=== PATIENT | female | born 1960 | race Caucasian/White ===

== ENCOUNTER 2017-01-24 12:20 | Outpatient (CLI) | payer MEDICARE, OTHER ==
[2017-01-24 12:20] VITALS: BP 122/78
[~2017-01-24 12:20] MED LIST: ADVAIR HFA1 AE1 IH; ADVAIR HFA1 AE2 INH; AGGRENOX (D1 CAPSULE FT; ALLERGY; AMITIZA24 MCG PO; AMOXICILLIN 50500 MG PO; APAP W/ CODEINE1 TAB PO; ASPIRIN 81MG TA81 MG PO; ASTELIN NA137 MCG/BO; ASTEPRO205.5 MCG/ NS; BENICAR20 MG PO; BENICAR5 MG OR; BUSPAR DIVIDOSE15 MG PO; CALCIUM WITH VI1 TAB PO; CHLORDIAZEPOXID10 MG PO; DEXILANT60 MG PO; DIPYRIDAMOLE50 MG PO; EFFEXOR XR150 MG PO; FLEXERIL10 M1 PO; FLEXERIL5 MG PO; FLONASE 50 MCG16 GM; FLUCONAZOLE 10100 MG PO; GABAPENTIN 600600 MG PO; HAIR SKIN NAIL1 EACH PO; HYDROCHLOROTHIA25 M1 PO; HYDROCODONE-APA1 TA2 PO; IPRATROPIU0.5 MG/2.5 IN; LEVOCETIRIZINE D5 MG PO; LODRANE PO; LORATADINE 10MG10 M1 PO; MAXZIDE 50 MG-71 TAB OR; METOLAZONE 2.52.5 MG PO; NASAREL0.025 MG/1 NS; NATURAL POTASS595 MG PO; PRAMIPEXOLE DIHY1 MG PO; PRAVASTATIN 20M20 MG PO; PRAVASTATIN 40M40 MG PO; PREDNISONE 5MG.5 MG PO; PULMICORT0.5 MG/2 M IN; RT-ACCUNEB S3 ML/AMP IN; SIMPONI50 MG/0.5 SC; SINGULAIR10 MG PO; SPIRIVA HA1 PUFF/INH IH; SYNTHROID 0.00.05 MG PO; ZITHROMAX500 MG PO; [UNRECOGNIZED DRUG - OTHER] OR; [UNRECOGNIZED DRUG - OTHER] SC
[2017-01-24] MEDS ORDERED: SPIRIVA HA1 PUFF/INH IH (15:19)
== END 2017-01-24 12:40 | disposition home or self-care (01) ==
LOC: COP 12:20
DX: M81.0 Age-related osteoporosis without current pathological fracture (principal)
CPT/HCPCS: J0897

== ENCOUNTER → 2017-02-20 | Outpatient (CLI) | payer MEDICARE, OTHER ==
--- NOTE | 2017-02-20 12:56 | RADIOLOGY REPORT PS360 ---
FOOT-LT-3 VIEWS HISTORY: Left foot pain/brain LEFT FOOT INJURY,SPRAIN ORDERING PHYSICIAN: Aydee MAYER PATIENT AGE: 56 years COMPARISON: 12/15/2016 FINDINGS: A nondisplaced transverse fracture is present at the proximal to mid shaft of the proximal phalanx of the third toe. There remains intramedullary lucency of the mid and distal aspect of the first metatarsal with some cortical irregularity involving the mid shaft of the first metacarpal and subcortical lucency medially of the distal first metatarsal. These findings are not significantly changed. Recent bone scan did not demonstrate increased activity in this region. IMPRESSION: 1. Nondisplaced fracture proximal phalanx third toe. 2. No change in the chronic changes of the first metatarsal
== END ==
LOC: RAD 12:15
DX: S99.922A Unspecified injury of left foot, initial encounter (principal); S93.612A Sprain of tarsal ligament of left foot, initial encounter

== ENCOUNTER → 2017-04-05 | Outpatient (CLI) | payer MEDICARE, OTHER ==
--- NOTE | 2017-04-05 13:12 | RADIOLOGY REPORT PS360 ---
CHEST(2 VIEWS-NOT PORTABLE) HISTORY: ACUTE BRONCHITIS ORDERING PHYSICIAN: Aydee MAYER PATIENT AGE: 56 years COMPARISON: 04/14/2015 FINDINGS: The cardiomediastinal silhouette and pulmonary vascularity are within normal limits. There is mild hyperinflation with attenuation of the peripheral pulmonary vessels suggesting small airway disease. No lobar consolidation or collapse. There is a 15 mm nodular opacity noted in the right upper lobe overlying the second rib and may be due to rib fracture. No other significant anomalies are evident.. No acute bony abnormalities. IMPRESSION: Mild hyperinflation. No lobar consolidation. 15 mm nodular opacity right upper lobe possibly related to healing rib fracture or pulmonary nodule. CT may confirm
== END ==
LOC: RAD 10:54
DX: J20.9 Acute bronchitis, unspecified (principal)

== ENCOUNTER → 2017-04-12 | Outpatient (CLI) | payer MEDICARE, OTHER ==
[2017-04-12 13:35] LABS: BUN 17 mg/dL (7-18)
[2017-04-12 13:36] LABS: GFR (ESTIMATED) 51 ML/MIN (59-)
== END ==
LOC: LAB 13:00
PROVIDERS: Nurse Practitioner Family
DX: R91.1 Solitary pulmonary nodule (principal)

== ENCOUNTER → 2017-04-13 | Outpatient (CLI) | payer MEDICARE, OTHER ==
--- NOTE | 2017-04-14 10:54 | RADIOLOGY REPORT PS360 ---
CT CHEST W/WO CONTRAST HISTORY: Solitary pulmonary nodule RT PULMONARY NODULE ORDERING PHYSICIAN: Aydee MAYER PATIENT AGE: 56 years TECHNIQUE: Helical acquisition with contrast. Axial, sagittal, and coronal reformatted images are generated and reviewed. COMPARISON: Radiograph of 04/05/2017 FINDINGS: No mediastinal or hilar mass is evident. There are coronary artery calcifications indicating coronary artery disease. Calcified nodes are present in the subcarinal region. Normal heart size. No pericardial effusion. Mild centrilobular emphysematous changes. There are no suspicious nodules in the right upper lobe. The radiographic abnormality is related to a sclerotic area in the right second rib anteriorly which may be due to an old fracture. There is a 4 mm noncalcified nodule in the left apex. A 3 mm noncalcified nodules present in the left lower lobe laterally. A calcified granulomas present in the left lower lobe centrally. Atelectatic or fibrotic changes are present in the lung bases greater on the left. Upper abdominal images demonstrates a 5 mm isodensity in the left hepatic lobe too small to categorize. No acute bony anomalies. IMPRESSION: 1. Radiographic abnormality in the right apex corresponds to a sclerotic area in the right second rib and may be due to an old fracture. No other sclerotic lesions are evident. 2. Old granulomatous disease. There is a 4 mm noncalcified nodule left apex. If there are risk factors for lung cancer then, a yearly follow-up would be recommended. 3. Mild centrilobular emphysematous change. 4. Coronary artery disease
== END ==
LOC: RAD 10:41
DX: R91.1 Solitary pulmonary nodule (principal)
CPT/HCPCS: Q9967

== ENCOUNTER 2017-04-20 06:29 | Day surgery (SDC) | payer MEDICARE, OTHER ==
[~2017-04-20] VITALS: Ht 152.4 cm; Wt 69.4 kg
--- NOTE | 2017-04-20 08:34 | Anesthesia Record ---
Anesthesia Record Part II Discharge time: 856 Destination: Same day surgery PACU nurse assessment review? Yes Patient is: Awake, Stable Anesthesia complications? No at 0815
--- NOTE | 2017-04-20 08:34 | Anesthesia Record ---
Anesthesia Record Part I Total IV fluids: 400 EBL (ml): 0 Urine Output: 0 Units of blood given: 0 B/P: 144/98 % SaO2: 95 Pulse: 80 Resps: 12 Temp: 97.0 Patient is: Awake, Stable Stable to PACU at: 0826 at 0833
[2017-04-20 10:01] VITALS: BP 150/88
--- NOTE | 2017-04-20 15:07 | Operative Note ---
[employer] Date of Procedure: 04/20/17 Time of Procedure: 0830 Surgeon: Dimitri Milian Procedure performed: Bilateral myringotomy and tubes Anesthesia: General Pre-operative dx: 1. Persistent acute otitis media 2. Bilateral serous otitis media Post-operative dx: 1. Persistent acute otitis media 2. Bilateral serous otitis media Operative procedure: With patient under general anesthesia the right ear was prepped and draped. The RIGHT tympanic membrane was acutely inflamed and there was thick glue fluid in the RIGHT middle ear. The fluid was cleared and a Barger bevel tube was inserted. Ciprodex drops were applied. The findings and procedure in the left ear were identical, a Barger bevel tube was inserted and Ciprodex drops were applied. The operating microscope was used for all the procedure. EBL (ml): 1 Complications: None at 0360
== END 2017-04-20 09:35 | disposition home or self-care (01) ==
LOC: SDC 06:29
PROVIDERS: Otolaryngology
PROC: 099580Z Drainage of Right Middle Ear with Drainage Device, Via Natural or Artificial Opening Endoscopic (ICD-10-PCS; 2017-04-20)
PROC: 099680Z Drainage of Left Middle Ear with Drainage Device, Via Natural or Artificial Opening Endoscopic (ICD-10-PCS; principal; 2017-04-20 08:00)
DX: H65.23 Chronic serous otitis media, bilateral (principal)
CPT/HCPCS: J2405